=== PATIENT | male | born 1970 | race African-American/Black ===

== ENCOUNTER 2016-08-03 00:56 | Inpatient (IN) | payer SELFPAY ==
[~2016-08-03] VITALS: Ht 182.9 cm; Wt 73.9 kg
[2016-08-03] VITALS (9 sets, daily range): BP systolic 135–155; BP diastolic 70–92; PULSE 54–86; RESP 16–20; TEMP 97.4–98.2; O2SAT 95–98
[~2016-08-03 00:56] MED LIST: PERC5TAB12 PO
[2016-08-03] MEDS ORDERED: SODIUM CHLOR 0.9% 1000 ML INJ 1,000 ML IV SCH ×2 (01:39→05:44)
[2016-08-03] MEDS ORDERED: ONDANSETRON HCL 4 MG/2 ML VIAL IVP ONE (01:45)
[2016-08-03] MEDS ORDERED: MORPHINE SULFATE 4 MG/ML INJ IV PUSH ONE (01:45)
[2016-08-03] MEDS ORDERED: PANTOPRAZOLE SODIUM 40 MG VIAL IVP ONE (01:45)
--- NOTE | 2016-08-03 01:45 | PD ---
HPI Chief Complaint: GI Complaint Time Seen by Provider: 01:25 Travel History International Travel<30 days: No Contact w/Intl Traveler<30days: No Traveled to known affect area: No History of Present Illness HPI 45-year-old male complains of abdominal pain with nausea vomiting diarrhea. Patient states that the pain started this evening. Patient states the pain is sharp burning pain localized upper abdomen with radiation to the back. Patient denies any fever chills. Patient states that he noticed some blood in the vomitus. Patient denies any blood per stool. Patient denies any dysuria or frequency. Patient denies any history of GI problem in the past. Patient states that he drinks 6 pack per day. Patient states that he takes BC powder daily for shoulder pain. On a scale of 1-10 the pain is an 8. Patient also complains of abdominal bloating today. PFSH Past Medical History Diabetes: Yes (was told he was pre diabetic) Patient Takes Glucophage: No Diminished Hearing: No Influenza Vaccination: Yes Past Surgical History Other Surgery: Yes (l ankle) Social History Alcohol Use: Yes (6 PK A DAY) Tobacco Use: Yes (1 PPD) Substance Use: No Allergies-Medications (Allergen,Severity, Reaction): Coded Allergies: No Known Allergies (Verified , 08/03/16) Reported Meds & Prescriptions Reported Meds & Active Scripts Active No Active Prescriptions or Reported Medications Review of Systems General / Constitutional: No: Fever Eyes: No: Visual changes HENT: No: Headaches Cardiovascular: No: Chest Pain or Discomfort Respiratory: No: Shortness of Breath Gastrointestinal: Positive: Nausea, Vomiting, Diarrhea, Abdominal Pain Genitourinary: No: Dysuria Musculoskeletal: No: Pain Skin: No Rash Neurologic: No: Weakness Psychiatric: No: Depression Endocrine: No: Polydipsia Hematologic/Lymphatic: No: Easy Bruising Physical Exam Narrative GENERAL: Well-nourished, well-developed patient. SKIN: Warm and dry. HEAD: Normocephalic. EYES: No scleral icterus. No injection or drainage. NECK: Supple, trachea midline. No JVD or lymphadenopathy. CARDIOVASCULAR: Regular rate and rhythm without murmurs, gallops, or rubs. RESPIRATORY: Breath sounds equal bilaterally. No accessory muscle use. GASTROINTESTINAL: Abdomen soft, nondistended. Patient has moderate tenderness on palpation epigastric area and mild tenderness on palpation upper abdomen area. No rebound tenderness. No mass. MUSCULOSKELETAL: No cyanosis, or edema. BACK: Nontender without obvious deformity. No CVA tenderness. Neurologic exam normal. Data Data Last Documented VS Vital Signs Date Time Temp Pulse Resp B/P Pulse Ox O2 Delivery O2 Flow Rate FiO2 08/03/16 01:25 73 20 155/79 98 Room Air 08/03/16 00:57 98.2 Orders Complete Blood Count With Diff (08/03/16 01:39) Comprehensive Metabolic Panel (08/03/16 01:39) Lipase (08/03/16 01:39) Prothrombin Time / Inr (Pt) (08/03/16 01:39) Act Partial Throm Time (Ptt) (08/03/16 01:39) Urinalysis - C+S If Indicated (08/03/16 01:39) Ct Abd/Pel W Iv Contrast(Rout) (08/03/16 01:39) Iv Access Insert/Monitor (08/03/16 01:39) Ecg Monitoring (08/03/16 01:39) Oximetry (08/03/16 01:39) Morphine Inj (Morphine Inj) (08/03/16 01:45) Ondansetron Inj (Zofran Inj) (08/03/16 01:45) Pantoprazole Inj (Protonix Inj) (08/03/16 01:45) Sodium Chlor 0.9% 1000 Ml Inj (Ns 1000 M (08/03/16 01:39) Iohexol 350 Inj (Omnipaque 350 Inj) (08/03/16 03:01) Labs Laboratory Tests Test 08/03/16 01:40 White Blood Count 13.7 TH/MM3 Red Blood Count 4.34 MIL/MM3 Hemoglobin 14.2 GM/DL Hematocrit 39.9 % Mean Corpuscular Volume 92.0 FL Mean Corpuscular Hemoglobin 32.6 PG Mean Corpuscular Hemoglobin 35.5 % Concent Red Cell Distribution Width 17.6 % Platelet Count 327 TH/MM3 Mean Platelet Volume 7.1 FL Neutrophils (%) (Auto) 68.7 % Lymphocytes (%) (Auto) 24.5 % Monocytes (%) (Auto) 4.6 % Eosinophils (%) (Auto) 1.5 % Basophils (%) (Auto) 0.7 % Neutrophils # (Auto) 9.4 TH/MM3 Lymphocytes # (Auto) 3.4 TH/MM3 Monocytes # (Auto) 0.6 TH/MM3 Eosinophils # (Auto) 0.2 TH/MM3 Basophils # (Auto) 0.1 TH/MM3 CBC Comment DIFF FINAL Differential Comment Prothrombin Time 9.6 SEC Prothromb Time International 0.9 RATIO Ratio Activated Partial 25.0 SEC Thromboplast Time Sodium Level 141 MEQ/L Potassium Level 3.9 MEQ/L Chloride Level 108 MEQ/L Carbon Dioxide Level 24.5 MEQ/L Anion Gap 9 MEQ/L Blood Urea Nitrogen 9 MG/DL Creatinine 0.90 MG/DL Random Glucose 99 MG/DL Calcium Level 8.6 MG/DL Total Bilirubin 0.1 MG/DL Aspartate Amino Transf 33 U/L (AST/SGOT) Alanine Aminotransferase 24 U/L (ALT/SGPT) Alkaline Phosphatase 65 U/L Total Protein 7.6 GM/DL Albumin 3.7 GM/DL Lipase 08289 U/L [facility] Medical Decision Making Medical Screen Exam Complete: Yes Emergency Medical Condition: Yes Interpretation(s) Last Impressions Abdomen/Pelvis CT 08/03/16 0139 Signed Impressions: Service Date/Time: Wednesday, August 03, 2016 02:48 - CONCLUSION: 1. Acute pancreatitis. No gallstones. No pseudocyst. The splenic vein remains patent. Christiano Brown Jr., MD 5:04 AM. CBC WBC 13.7. Normal differential. CMP with lipase 80177. Differential Diagnosis Differential diagnosis including gastroenteritis, gastritis, PUD, appendicitis, cholecystitis, colitis, UTI, pyelonephritis, nephrolithiasis. Narrative Course 45-year-old male with epigastric upper abdominal pain and nausea vomiting diarrhea. Patient states that he drinking sixpack daily. Normal saline solution 1 25 cc an hour. Protonix 40 mg IV. Morphine 2 mg IV. Zofran 4 mg IV. Diagnosis Primary Impression: Acute pancreatitis Qualified Code: K85.20 - Alcohol-induced acute pancreatitis without infection or necrosis Scripts No Active Prescriptions or Reported Meds Wing Dinero MD Aug 03, 2016 01:44
[2016-08-03 02:01] LABS: AUTOMATED NEUTROPHIL # 9.4 TH/MM3 (1.8-7.7); BASOPHIL # 0.1 TH/MM3 (0-0.2); BASOPHIL % 0.7 % (0.0-2.0); EOSINOPHIL # 0.2 TH/MM3 (0-0.4); EOSINOPHIL % 1.5 % (0.0-4.0); HEMATOCRIT 39.9 % (39.0-51.0); HEMO FLAGS DIFF FINAL; LYMPH % 24.5 % (9.0-44.0); LYMPHOCYTE # 3.4 TH/MM3 (1.0-4.8); MEAN CORPUSCULAR HEMOGLOBIN 32.6 PG (27.0-34.0); MEAN CORPUSCULAR HGB CONC 35.5 % (32.0-36.0); MONO % 4.6 % (0.0-8.0); NEUT % 68.7 % (16.0-70.0); PLATELET COUNT 327 TH/MM3 (150-450); RED BLOOD COUNT 4.34 MIL/MM3 (4.50-5.90); RED CELL DISTRIBUTION WIDTH 17.6 % (11.6-17.2); WHITE BLOOD COUNT 13.7 TH/MM3 (4.0-11.0)
[2016-08-03 02:12] LABS: INTERNATIONAL NORMALIZED RATIO 0.9 RATIO; PROTHROMBIN TIME - PATIENT 9.6 SEC (9.8-11.6)
[2016-08-03 02:23] LABS: ALT (GPT) 24 U/L (12-78); ANION GAP 9 MEQ/L (5-15); AST (GOT) 33 U/L (15-37); BICARBONATE 24.5 MEQ/L (21.0-32.0); BLOOD UREA NITROGEN 9 MG/DL (7-18); CHLORIDE 108 MEQ/L (98-107); POTASSIUM 3.9 MEQ/L (3.5-5.1); SODIUM (NA) 141 MEQ/L (136-145)
[2016-08-03 02:25] LABS: ALKALINE PHOSPHATASE 65 U/L (45-117); TOTAL BILIRUBIN ADULT 0.1 MG/DL (0.2-1.0)
[2016-08-03] MEDS ORDERED: IOHEXOL 350 MG/ML 10 ML VIAL (for RAD DIAG) IV ONE (03:01)
--- NOTE | 2016-08-03 04:38 | RADRPT ---
EXAM DATE/TIME: 08/03/2016 02:48 [facility] COMPARISON: No previous studies available for comparison. INDICATIONS : Abdominal pain along with nausea,vomiting and diarrhea. IV CONTRAST: 75 cc Omnipaque 350 (iohexol) IV ORAL CONTRAST: No oral contrast ingested. RADIATION DOSE: 9.96 CTDIvol (mGy) MEDICAL HISTORY : None SURGICAL HISTORY : None. ENCOUNTER: Initial ACUITY: 1 day PAIN SCALE: 10/10 LOCATION: abdomen TECHNIQUE: Volumetric scanning of the abdomen and pelvis was performed. Using automated exposure control and ad justment of the mA and/or kV according to patient size, radiation dose was kept as low as reasonably achievable to obtain optimal diagnostic quality images. FINDINGS: LOWER LUNGS: The visualized lower lungs are clear. LIVER: Homogeneous density without lesion. There is no dilation of the biliary tree. No calcified gallston es. SPLEEN: Normal size without lesion. PANCREAS: There is stranding in the fat surrounding the pancreas most abundant within the body and tail. The pa ncreas enhances normally with contrast. Splenic vein remains patent. No pancreatic ductal dilatation. No gallstones. KIDNEYS: Normal in size and shape. There is no mass, stone or hydronephrosis. ADRENAL GLANDS: Within normal limits. VASCULAR: There is no aortic aneurysm. BOWEL/MESENTERY: The stomach, small bowel, and colon demonstrate no acute abnormality. There is no free intraperitone al air or fluid. ABDOMINAL WALL: Within normal limits. RETROPERITONEUM: There is no lymphadenopathy. BLADDER: No wall thickening or mass. REPRODUCTIVE: Within normal limits. INGUINAL: There is no lymphadenopathy or hernia. MUSCULOSKELETAL: Within normal limits for patient age. CONCLUSION: 1. Acute pancreatitis. No gallstones. No pseudocyst. The splenic vein remains patent. Christiano Brown Jr., MD on August 03, 2016 at 4:32 Board Certified Radiologist. This report was verified electronically.
[2016-08-03] MEDS ORDERED: ONDANSETRON HCL 4 MG/2 ML VIAL IVP PRN (05:45)
[2016-08-03] MEDS ORDERED: NALOXONE HCL 0.4 MG/ML AMP IV PRN (05:45)
[2016-08-03] MEDS ORDERED: SODIUM CHLORIDE 0.9% FLUSH 10 ML FLUSH IV FLUSH PRN (05:45)
[2016-08-03] MEDS ORDERED: LORazepam 2 MG/ML VIAL IV PUSH PRN (06:00)
[2016-08-03] MEDS ORDERED: THIAMINE HCL 100 MG TAB PO ONE (06:00)
[2016-08-03 06:02] LABS: BLOOD, URINE NEG (NEG); COMMENT (UR) CULT NOT INDICATED; CULTURE IF INDICATED CULT NOT INDICATED; GLUCOSE,URINE NEG (NEG); HYALINE CAST, URINE 1 /lpf (RARE); KETONE, URINE NEG (NEG); MUCUS URINE FEW /lpf (OCC); NITRITE,URINE NEG (NEG); PH, URINE 5.5 (5.0-8.5); URINE COLOR YELLOW (YELLW/STRAW)
[2016-08-03] MEDS: MORPHINE SULFATE 4 MG/ML INJ IV PUSH PRN ×3 (06:11→21:15)
[2016-08-03] MEDS: SODIUM CHLORIDE 0.9% FLUSH 10 ML FLUSH IV FLUSH SCH ×2 (08:58→21:00)
[2016-08-03] MEDS: chlordiazePOXIDE 25 MG CAP PO SCH ×3 (09:07→17:17)
--- NOTE | 2016-08-03 20:09 | HHI.HP ---
HPI Service [facility] Hospitalists Primary Care Physician No Primary Care Physician Admission Diagnosis acute pancreatitis Diagnoses: Chief Complaint: Abdominal pain Travel History International Travel<30 Days: No Contact w/Intl Traveler <30 Da: No Traveled to Known Affected Are: No History of Present Illness This is a 45-year-old male without significant past medical history other than alcohol abuse and smoking addiction who presents to [facility] complaining of one-day history of severe abdominal pain. The patient states that he started having yesterday around 7:20 PM abdominal pain localized in the epigastric region radiating to both right upper quadrant and left upper quadrant and to the back in a hemipelvis fashion associated with nausea and vomiting posteriorly as well as diarrhea. The patient denies any fevers or chills, denies any tremors, denies headache, denies palpitations. Complains of abdominal distention and decreased appetite. Patient states there are no aggravating or alleviating factors other than medications being administered here in the hospital. Nausea still present, however vomiting has resolved. Review of Systems As per history of present illness, other systems reviewed by me and negative Past Family Social History Past Medical History Denies Past Surgical History Right ankle surgery for fracture repair Reported Medications No Active Prescriptions or Reported Medications Allergies: Coded Allergies: No Known Allergies (Verified , 08/03/16) Active Ordered Medications Current Medications Medications (Trade) Dose Ordered Sig/Ling Route Start Time Stop Time Status Last Admin (NS Flush) 2 ml UNSCH PRN IV FLUSH 08/03/16 05:45 08/03/16 16:30 (NS Flush) 2 ml BID IV FLUSH 08/03/16 09:00 (Zofran Inj) 4 mg Q6H PRN IVP 08/03/16 05:45 (Narcan Inj) 0.4 mg UNSCH PRN IV 08/03/16 05:45 (Morphine Inj) 2 mg Q3H PRN IV PUSH 08/03/16 06:00 08/03/16 17:18 (Vitamin B1) 100 mg DAILY PO 08/04/16 09:00 (Ativan Inj) 1 mg Q2H PRN IV PUSH 08/03/16 06:00 (Librium) 25 mg TID PO 08/03/16 09:00 08/03/16 17:17 (Protonix Inj) 40 mg Q24H IV PUSH 08/04/16 06:00 Family History Denies family history of diabetes, cancer or heart disease. Social History Patient states he smokes 1 pack per day. Patient drinks alcohol about an 8 pack per day. Denies illegal drug use. The patient is single and has 5 grownup children. Physical Exam Vital Signs Vital Signs Date Time Temp Pulse Resp B/P Pulse Ox O2 Delivery O2 Flow Rate FiO2 08/03/16 16:00 97.7 54 17 155/92 97 08/03/16 15:52 54 18 155/70 97 08/03/16 07:27 58 18 135/72 95 Room Air 08/03/16 07:26 18 95 Room Air 08/03/16 03:30 82 20 145/75 98 Room Air 08/03/16 01:25 73 20 155/79 98 Room Air 08/03/16 01:25 20 08/03/16 00:57 98.2 86 16 142/89 98 Room Air Physical Exam GENERAL: This is a well-nourished, well-developed patient, in moderate distress due to pain. No respiratory distress SKIN: No rashes, ecchymoses or lesions. Cool and dry. HEAD: Atraumatic. Normocephalic. No temporal or scalp tenderness. EYES: Pupils equal round and reactive. Extraocular motions intact. No scleral icterus. No injection or drainage. ENT: Nose without bleeding, purulent drainage or septal hematoma. Throat without erythema, tonsillar hypertrophy or exudate. Uvula midline. Airway patent. NECK: Trachea midline. No JVD or lymphadenopathy. Supple, nontender, no meningeal signs. CARDIOVASCULAR: Regular rate and rhythm without murmurs, gallops, or rubs. RESPIRATORY: Clear to auscultation. Breath sounds equal bilaterally. No wheezes , rales, or rhonchi. GASTROINTESTINAL: Abdomen soft, slightly tender to palpation mostly in epigastric region and upper quadrants. Bowel sounds are present. MUSCULOSKELETAL: Extremities without clubbing, cyanosis, or edema. No joint tenderness, effusion, or edema noted. No calf tenderness. Negative Homans sign bilaterally. NEUROLOGICAL: Awake and alert. Cranial nerves II through XII intact. Motor and sensory grossly within normal limits. Five out of 5 muscle strength in all muscle groups. Normal speech. Laboratory Laboratory Tests Test 08/03/16 08/03/16 01:40 05:30 White Blood Count 13.7 Red Blood Count 4.34 Hemoglobin 14.2 Hematocrit 39.9 Mean Corpuscular Volume 92.0 Mean Corpuscular Hemoglobin 32.6 Mean Corpuscular Hemoglobin 35.5 Concent Red Cell Distribution Width 17.6 Platelet Count 327 Mean Platelet Volume 7.1 Neutrophils (%) (Auto) 68.7 Lymphocytes (%) (Auto) 24.5 Monocytes (%) (Auto) 4.6 Eosinophils (%) (Auto) 1.5 Basophils (%) (Auto) 0.7 Neutrophils # (Auto) 9.4 Lymphocytes # (Auto) 3.4 Monocytes # (Auto) 0.6 Eosinophils # (Auto) 0.2 Basophils # (Auto) 0.1 CBC Comment DIFF FINAL Differential Comment Prothrombin Time 9.6 Prothromb Time International 0.9 Ratio Activated Partial 25.0 Thromboplast Time Sodium Level 141 Potassium Level 3.9 Chloride Level 108 Carbon Dioxide Level 24.5 Anion Gap 9 Blood Urea Nitrogen 9 Creatinine 0.90 Random Glucose 99 Calcium Level 8.6 Total Bilirubin 0.1 Aspartate Amino Transf 33 (AST/SGOT) Alanine Aminotransferase 24 (ALT/SGPT) Alkaline Phosphatase 65 Total Protein 7.6 Albumin 3.7 Lipase 25092 Urine Color YELLOW Urine Turbidity CLEAR Urine pH 5.5 Urine Specific [place] GREATER THAN 1.050 Urine Protein TRACE Urine Glucose (UA) NEG Urine Ketones NEG Urine Occult Blood NEG Urine Nitrite NEG Urine Bilirubin NEG Urine Urobilinogen LESS THAN 2.0 Urine Leukocyte Esterase NEG Urine RBC LESS THAN 1 Urine WBC LESS THAN 1 Urine Hyaline Casts 1 Urine Mucus FEW Microscopic Urinalysis Comment CULT NOT INDICATED Result Diagram: 08/03/16 0140 08/03/16139 Imaging Last Impressions Abdomen/Pelvis CT 08/03/16138 Signed Impressions: Service Date/Time: Wednesday, August 03, 2016 02:48 - CONCLUSION: 1. Acute pancreatitis. No gallstones. No pseudocyst. The splenic vein remains patent. Christiano Brown Jr., MD Reviewed by me Assessment and Plan Problem List: (1) Acute pancreatitis ICD Code: K85.90 Status: Acute (2) Leukocytosis ICD Code: D72.829 Status: Acute Assessment and Plan Admit the patient to medical floor. IV Zofran as needed for nausea and vomiting. We'll place on IV fluids in the form of normal saline at 150 mL per hour. Pain control with IV morphine Keep nothing by mouth for now GI consult Monitor lipase. Code Status Full code Discussed Condition With Patient Physician Certification 2 Midnight Certification Type: Admission for Inpatient Services Order for Inpatient Services The services are ordered in accordance with Medicare regulations or non- Medicare payer requirements, as applicable. In the case of services not specified as inpatient-only, they are appropriately provided as inpatient services in accordance with the 2-midnight benchmark. Estimated LOS (days): 2 days is the estimated time the patient will need to remain in the hospital, assuming treatment plan goals are met and no additional complications. Post-Hospital Plan: Home Problem Qualifiers (1) Acute pancreatitis: Qualified Code: K85.20 - Alcohol-induced acute pancreatitis without infection or necrosis Jonathan Carmen MD Aug 03, 2016 20:09
[2016-08-03] MEDS ORDERED: MORPHINE SULFATE 4 MG/ML INJ IV PUSH PRN (20:45)
[2016-08-03] MEDS ORDERED: cloNIDine HCL 0.1 MG TAB PO PRN (21:00)
[2016-08-03] MEDS: SODIUM CHLOR 0.9% 1000 ML INJ 1,000 ML IV SCH (21:09)
[2016-08-04] VITALS: BP 144/81; PULSE 59; RESP 17; TEMP 98.6; O2SAT 96
[2016-08-04 04:00] VITALS: BP 142/89; PULSE 59; RESP 18; TEMP 98.9; O2SAT 97
[2016-08-04 04:37] LABS: AUTOMATED NEUTROPHIL # 7.1 TH/MM3 (1.8-7.7); BASOPHIL % 0.3 % (0.0-2.0); EOSINOPHIL # 0.2 TH/MM3 (0-0.4); EOSINOPHIL % 1.9 % (0.0-4.0); HEMO FLAGS DIFF FINAL; LYMPH % 16.9 % (9.0-44.0); LYMPHOCYTE # 1.6 TH/MM3 (1.0-4.8); MEAN CORPUSCULAR HEMOGLOBIN 30.8 PG (27.0-34.0); MEAN CORPUSCULAR HGB CONC 32.8 % (32.0-36.0); NEUT % 72.9 % (16.0-70.0); PLATELET COUNT 269 TH/MM3 (150-450); RED BLOOD COUNT 4.25 MIL/MM3 (4.50-5.90); RED CELL DISTRIBUTION WIDTH 17.5 % (11.6-17.2); WHITE BLOOD COUNT 9.7 TH/MM3 (4.0-11.0)
[2016-08-04] MEDS: SODIUM CHLOR 0.9% 1000 ML INJ 1,000 ML IV SCH ×3 (04:57→21:00)
[2016-08-04] MEDS: PANTOPRAZOLE SODIUM 40 MG VIAL IV PUSH SCH (05:00)
[2016-08-04 05:12] LABS: ALKALINE PHOSPHATASE 62 U/L (45-117); ALT (GPT) 18 U/L (12-78); ANION GAP 7 MEQ/L (5-15); AST (GOT) 19 U/L (15-37); BICARBONATE 26.5 MEQ/L (21.0-32.0); BLOOD UREA NITROGEN 8 MG/DL (7-18); CHLORIDE 106 MEQ/L (98-107); GLOMERULAR FILTRATION RATE 120 ML/MIN (>89); POTASSIUM 3.9 MEQ/L (3.5-5.1); SODIUM (NA) 139 MEQ/L (136-145); TOTAL BILIRUBIN ADULT 0.5 MG/DL (0.2-1.0)
[2016-08-04 08:00] VITALS: BP 131/78; PULSE 54; RESP 16; TEMP 97.6; O2SAT 96
[2016-08-04] MEDS: MORPHINE SULFATE 4 MG/ML INJ IV PUSH PRN (09:02)
[2016-08-04] MEDS: THIAMINE HCL 100 MG TAB PO SCH (09:02)
[2016-08-04] MEDS: chlordiazePOXIDE 25 MG CAP PO SCH ×3 (09:02→17:47)
--- NOTE | 2016-08-04 09:27 | HHI.PR ---
Subjective Remarks Patient still c/o abdominal pain - diffuse feels nauseous when he stands up states that he is urinating well denies cp/sob BP elevated overnight now w better control Objective Vitals Vital Signs Date Time Temp Pulse Resp B/P Pulse Ox O2 Delivery O2 Flow Rate FiO2 08/04/16 08:00 97.6 54 16 131/78 96 08/04/16 04:00 98.9 59 18 142/89 97 08/04/16 00:00 98.6 59 17 144/81 96 08/03/16 21:02 56 08/03/16 20:30 97.4 58 17 152/82 96 08/03/16 16:00 97.7 54 17 155/92 97 08/03/16 15:52 54 18 155/70 97 I/O 08/03/16 08/03/16 08/03/16 08/04/16 08/04/16 08/04/16 07:00 15:00 23:00 07:00 15:00 23:00 Intake Total 360 ml Output Total 400 ml Balance -40 ml Intake Oral 360 ml Output Urine Total 400 ml # Voids 5 # Bowel Movements 2 Result Diagram: 08/04/16 0400 08/04/16 0400 Imaging Last Impressions Abdomen/Pelvis CT 08/03/16 0139 Signed Impressions: Service Date/Time: Wednesday, August 03, 2016 02:48 - CONCLUSION: 1. Acute pancreatitis. No gallstones. No pseudocyst. The splenic vein remains patent. Christiano Brown Jr., MD Objective Remarks GENERAL: This is a well-nourished, well-developed patient, in mild distress due to pain. No respiratory distress SKIN: No rashes, ecchymoses or lesions. Cool and dry. HEAD: Atraumatic. Normocephalic. No temporal or scalp tenderness. EYES: Pupils equal round and reactive. Extraocular motions intact. No scleral icterus. No injection or drainage. ENT: Nose without bleeding, purulent drainage or septal hematoma. Throat without erythema, tonsillar hypertrophy or exudate. Uvula midline. Airway patent. NECK: Trachea midline. No JVD or lymphadenopathy. Supple, nontender, no meningeal signs. CARDIOVASCULAR: Regular rate and rhythm without murmurs, gallops, or rubs. RESPIRATORY: Clear to auscultation. Breath sounds equal bilaterally. No wheezes , rales, or rhonchi. GASTROINTESTINAL: Abdomen soft, slightly tender to palpation mostly in epigastric region and upper quadrants. Bowel sounds are present. moderately distended. MUSCULOSKELETAL: Extremities without clubbing, cyanosis, or edema. No joint tenderness, effusion, or edema noted. No calf tenderness. Negative Homans sign bilaterally. NEUROLOGICAL: Awake and alert. Cranial nerves II through XII intact. Motor and sensory grossly within normal limits. Five out of 5 muscle strength in all muscle groups. Normal Medications and IVs Current Medications Medications (Trade) Dose Ordered Sig/Ling Route Start Time Stop Time Status Last Admin (NS Flush) 2 ml UNSCH PRN IV FLUSH 08/03/16 05:45 08/03/16 16:30 (NS Flush) 2 ml BID IV FLUSH 08/03/16 09:00 08/04/16 10:09 (Zofran Inj) 4 mg Q6H PRN IVP 08/03/16 05:45 (Narcan Inj) 0.4 mg UNSCH PRN IV 08/03/16 05:45 (Vitamin B1) 100 mg DAILY PO 08/04/16 09:00 08/04/16 09:02 (Ativan Inj) 1 mg Q2H PRN IV PUSH 08/03/16 06:00 (Librium) 25 mg TID PO 08/03/16 09:00 08/04/16 09:02 Pantoprazole Sodium 40 mg 40 mg Q24H IV PUSH 08/04/16 06:00 08/04/16 05:00 (NS 1000 ml Inj) 1,000 ml @ 125 mls/hr Q8H IV 08/03/16 21:00 08/04/16 04:57 (Morphine Inj) 2 mg Q3H PRN IV PUSH 08/03/16 20:45 (Morphine Inj) 4 mg Q3H PRN IV PUSH 08/03/16 20:45 08/04/16 09:02 (Catapres) 0.1 mg Q6H PRN PO 08/03/16 21:00 Urinary Catheter: No Vascular Central Line Catheter: No A/P Problem List: (1) Acute alcoholic pancreatitis ICD Code: K85.20 Status: Acute Plan: Patient has been admitted to the medical floor. Continue to monitor. GI consulted, recommendations pending Continue to keep the patient nothing by mouth Continue IV fluids in the form of normal saline. Continue pain control with IV morphine. (2) Elevated lipase ICD Code: R74.8 Status: Acute Plan: Secondary to acute pancreatitis. Lipase on admission 00896, trending down to 1348. (3) Abdominal pain ICD Code: R10.9 Status: Acute Plan: Due to acute pancreatitis. Continue pain control with IV morphine. (4) Leukocytosis ICD Code: D72.829 Status: Acute Plan: Additional distress and pain. WBC now down to 9.7. Continue to monitor CBC. Assessment and Plan GI prophylaxis: PPI. DVT prophylaxis: SCDs, I will add subcutaneous Lovenox. Discharge Planning Patient still with abdominal pain. Continue to monitor and the medical floor. Problem Qualifiers (1) Acute alcoholic pancreatitis: Qualified Code: K85.20 - Alcohol-induced acute pancreatitis without infection or necrosis (2) Abdominal pain: Qualified Code: R10.9 - Abdominal pain, unspecified location (3) Leukocytosis: Qualified Code: D72.829 - Leukocytosis, unspecified type Jonathan Carmen MD Aug 04, 2016 09:27
[2016-08-04] MEDS: SODIUM CHLORIDE 0.9% FLUSH 10 ML FLUSH IV FLUSH SCH ×2 (10:09→21:00)
--- NOTE | 2016-08-04 11:11 | PD.CONS ---
HPI History of Present Illness This is a pleasant 45 year old AA male with out past medical history except for alcohol abuse and smoking who presents to [facility] for evaluation of acute severe throbbing abdomen pain that started evening and woke him up from sleep. Patient admits to drinking about 8 pack a day for many years, states, he might have had more than usual prior to the abdomen pain. He is not on any medications at home except goody powder which he takes for shoulder and ankle pain. The pain in epigastric area and radiates to both right upper quadrant and left upper quadrant and wraps to the back, associated with nausea and vomiting, and diarrhea.He reports abdominal distention and decreased appetite. Nausea, vomiting, and diarrhea still persists here in the hospital. He had vomited this morning. last bout of diarrhea was around 5 am The patient denies any fevers or chills, denies or tremors, denies headache, denies palpitations. This is first episode of pancreatitis. CT showed Acute pancreatitis. No gallstones. No pseudocyst. The splenic vein [place] [address], LFTs normal. [facility] Past Medical History Denies Past Surgical History Right ankle surgery for fracture repair Coded Allergies: No Known Allergies (Verified , 08/03/16) Medications Current Medications Medications (Trade) Dose Ordered Sig/Ling Route Start Time Stop Time Status Last Admin (NS Flush) 2 ml UNSCH PRN IV FLUSH 08/03/16 05:45 08/03/16 16:30 (NS Flush) 2 ml BID IV FLUSH 08/03/16 09:00 08/04/16 10:09 (Zofran Inj) 4 mg Q6H PRN IVP 08/03/16 05:45 (Narcan Inj) 0.4 mg UNSCH PRN IV 08/03/16 05:45 (Vitamin B1) 100 mg DAILY PO 08/04/16 09:00 08/04/16 09:02 (Ativan Inj) 1 mg Q2H PRN IV PUSH 08/03/16 06:00 (Librium) 25 mg TID PO 08/03/16 09:00 08/04/16 09:02 Pantoprazole Sodium 40 mg 40 mg Q24H IV PUSH 08/04/16 06:00 08/04/16 05:00 (NS 1000 ml Inj) 1,000 ml @ 125 mls/hr Q8H IV 08/03/16 21:00 08/04/16 04:57 (Morphine Inj) 2 mg Q3H PRN IV PUSH 08/03/16 20:45 (Morphine Inj) 4 mg Q3H PRN IV PUSH 08/03/16 20:45 08/04/16 09:02 (Catapres) 0.1 mg Q6H PRN PO 08/03/16 21:00 Family History Denies family history of pancreatitis or colon cancer Social History Patient states he smokes 1 pack per day. Patient drinks alcohol about an 8 pack per day. Denies illegal drug use. GI Exam Vitals I&O Vital Signs Date Time Temp Pulse Resp B/P Pulse Ox O2 Delivery O2 Flow Rate FiO2 08/04/16 08:00 97.6 54 16 131/78 96 08/04/16 04:00 98.9 59 18 142/89 97 08/04/16 00:00 98.6 59 17 144/81 96 08/03/16 21:02 56 08/03/16 20:30 97.4 58 17 152/82 96 08/03/16 16:00 97.7 54 17 155/92 97 08/03/16 15:52 54 18 155/70 97 I/O 08/03/16 08/03/16 08/03/16 08/04/16 08/04/16 08/04/16 07:00 15:00 23:00 07:00 15:00 23:00 Intake Total 360 ml Output Total 400 ml Balance -40 ml Intake Oral 360 ml Output Urine Total 400 ml # Voids 5 # Bowel Movements 2 Imaging Last Impressions Abdomen/Pelvis CT 08/03/16 0139 Signed Impressions: Service Date/Time: Wednesday, August 03, 2016 02:48 - CONCLUSION: 1. Acute pancreatitis. No gallstones. No pseudocyst. The splenic vein remains patent. Christiano Brown Jr., MD Laboratory Test 08/04/16 04:00 White Blood Count 9.7 TH/MM3 Red Blood Count 4.25 MIL/MM3 Hemoglobin 13.1 GM/DL Hematocrit 40.0 % Mean Corpuscular Volume 94.0 FL Mean Corpuscular Hemoglobin 30.8 PG Mean Corpuscular Hemoglobin 32.8 % Concent Red Cell Distribution Width 17.5 % Platelet Count 269 TH/MM3 Mean Platelet Volume 6.8 FL Neutrophils (%) (Auto) 72.9 % Lymphocytes (%) (Auto) 16.9 % Monocytes (%) (Auto) 8.0 % Eosinophils (%) (Auto) 1.9 % Basophils (%) (Auto) 0.3 % Neutrophils # (Auto) 7.1 TH/MM3 Lymphocytes # (Auto) 1.6 TH/MM3 Monocytes # (Auto) 0.8 TH/MM3 Eosinophils # (Auto) 0.2 TH/MM3 Basophils # (Auto) 0.0 TH/MM3 CBC Comment DIFF FINAL Differential Comment Sodium Level 139 MEQ/L Potassium Level 3.9 MEQ/L Chloride Level 106 MEQ/L Carbon Dioxide Level 26.5 MEQ/L Anion Gap 7 MEQ/L Blood Urea Nitrogen 8 MG/DL Creatinine 0.84 MG/DL Estimat Glomerular Filtration 120 ML/MIN Rate Random Glucose 71 MG/DL Calcium Level 8.6 MG/DL Total Bilirubin 0.5 MG/DL Aspartate Amino Transf 19 U/L (AST/SGOT) Alanine Aminotransferase 18 U/L (ALT/SGPT) Alkaline Phosphatase 62 U/L Total Protein 6.6 GM/DL Albumin 3.0 GM/DL Lipase 1348 U/L Physical Examination HEENT: normocephalic; atraumatic; no jaundice. NECK: Neck is supple, no JVD, no lymphadenopathy. CHEST: Chest is clear to auscultation and percussion. CARDIAC: Regular rate and rhythm with no murmur gallop or rubs. ABDOMEN: Soft, distended, severe tenderness upon palpation; no hepatosplenomegaly; bowel sounds are present in all four quadrants. EXTREMITIES: No clubbing, cyanosis, or edema. SKIN: Normal; no rash; no jaundice. HAT PRESSER: No focal deficits; alert and oriented times three. Assessment and Plan Plan - Acute pancreatitis first episode/ likely alcohol induced (Patient admits to drinking about 8 pack a day for many years)- severe throbbing abdomen pain that started evening and woke him up from sleep. states, he might have had more than usual prior to the abdomen pain. He is not on any medications at home except goody powder which he takes for shoulder and ankle pain. The pain in epigastric area and radiates to both right upper quadrant and left upper quadrant and wraps to the back, associated with nausea and vomiting, and diarrhea.He reports abdominal distention and decreased appetite. Nausea, vomiting, and diarrhea still persists here in the hospital. He had vomited this morning. last bout of diarrhea was around 5 am The patient denies any fevers or chills, denies or tremors, denies headache, denies palpitation CT showed Acute pancreatitis. No gallstones. No pseudocyst. The splenic vein [place] [address] ---> 1348, LFTs normal. - Leukocytosis- secondary to above, resolved - Alcohol abuse- Counseled on cessation - Smoking abuse Plan: - Clear liquids - Lipase, lfts in am - Possible EGD on Saturday - Alcohol cessation - supportive care - Patient seen and examined by Dr. Be and myself and this note is written on her behalf. Crescencio Miranda Aug 04, 2016 11:10
[2016-08-04 12:00] VITALS: BP 133/84; PULSE 56; RESP 16; TEMP 97.9; O2SAT 96
[2016-08-04 16:00] VITALS: BP 132/82; PULSE 68; RESP 15; TEMP 98; O2SAT 98
[2016-08-04 20:00] VITALS: BP 140/78; PULSE 60; PULSE 90; RESP 17; TEMP 98.4; O2SAT 99
[2016-08-05] VITALS (7 sets, daily range): BP systolic 122–148; BP diastolic 75–92; PULSE 50–77; RESP 17–18; TEMP 96.2–98.5; O2SAT 95–98
[2016-08-05] MEDS: MORPHINE SULFATE 4 MG/ML INJ IV PUSH PRN (04:15)
[2016-08-05] MEDS: SODIUM CHLOR 0.9% 1000 ML INJ 1,000 ML IV SCH ×2 (04:15→12:29)
[2016-08-05 04:38] LABS: HEMATOCRIT 37.8 % (39.0-51.0); MEAN CELL VOLUME 92.3 FL (80.0-100.0); MEAN CORPUSCULAR HGB CONC 34.7 % (32.0-36.0); PLATELET COUNT 289 TH/MM3 (150-450); RED BLOOD COUNT 4.09 MIL/MM3 (4.50-5.90); RED CELL DISTRIBUTION WIDTH 17.3 % (11.6-17.2); REVIEW FLAG FINAL; WHITE BLOOD COUNT 8.6 TH/MM3 (4.0-11.0)
[2016-08-05] MEDS: PANTOPRAZOLE SODIUM 40 MG VIAL IV PUSH SCH (05:03)
[2016-08-05] MEDS: chlordiazePOXIDE 25 MG CAP PO SCH ×3 (08:22→17:07)
[2016-08-05] MEDS: SODIUM CHLORIDE 0.9% FLUSH 10 ML FLUSH IV FLUSH SCH ×2 (08:22→21:00)
[2016-08-05] MEDS: THIAMINE HCL 100 MG TAB PO SCH (08:22)
--- NOTE | 2016-08-05 12:29 | HHI.GIFU ---
Subjective Remarks Pt reports that he had an episode of vomiting this morning and one episode of diarrhea about 30 mins ago. Afebrile Continues to have abd pain ([place]) Objective Vitals I&O Vital Signs Date Time Temp Pulse Resp B/P Pulse Ox O2 Delivery O2 Flow Rate FiO2 08/05/16 08:00 97.0 50 18 138/76 97 08/05/16 06:26 51 08/05/16 06:26 51 133/82 95 08/05/16 04:00 97.6 54 17 122/75 97 08/05/16 00:00 98.5 60 17 148/89 98 08/04/16 20:00 90 08/04/16 20:00 98.4 60 17 140/78 99 08/04/16 16:00 98.0 68 15 132/82 98 I/O 08/04/16 08/04/16 08/04/16 08/05/16 08/05/16 08/05/16 07:00 15:00 23:00 07:00 15:00 23:00 Intake Total 1668 ml 1371 ml 729 ml Balance 1668 ml 1371 ml 729 ml Intake Oral 0 ml 240 ml 240 ml IV Total 1668 ml 1131 ml 489 ml # Voids 5 5 4 4 # Bowel Movements 0 4 Laboratory Laboratory Tests Test 08/05/16 04:06 White Blood Count 8.6 Red Blood Count 4.09 Hemoglobin 13.1 Hematocrit 37.8 Mean Corpuscular Volume 92.3 Mean Corpuscular Hemoglobin 32.0 Mean Corpuscular Hemoglobin 34.7 Concent Red Cell Distribution Width 17.3 Platelet Count 289 Mean Platelet Volume 7.0 Sodium Level 139 Potassium Level 4.0 Chloride Level 106 Carbon Dioxide Level 26.0 Anion Gap 7 Blood Urea Nitrogen 7 Creatinine 0.83 Estimat Glomerular Filtration 122 Rate Random Glucose 85 Calcium Level 8.6 Lipase 407 Imaging Last Impressions Abdomen/Pelvis CT 08/03/16 0139 Signed Impressions: Service Date/Time: Wednesday, August 03, 2016 02:48 - CONCLUSION: 1. Acute pancreatitis. No gallstones. No pseudocyst. The splenic vein remains patent. Christiano Brown Jr., MD Physical Exam HEENT: Pupils round and reactive to light; normocephalic; atraumatic; no jaundice. Throat is clear. CHEST: CTA CARDIAC: Regular ABDOMEN: +BS, distended, diffusely tender, increased in the upper abdomen. EXTREMITIES: No clubbing, cyanosis, or edema. SKIN: Normal; no rash; no jaundice. MECHANICAL FITTER: No focal deficits; alert and oriented times three. ([place]) Assessment and Plan Plan - Acute pancreatitis first episode/ likely alcohol induced. Patient admits to longstanding EtOH use, drinking about 8 pack/day for many years. He takes 2 goody powder per day which he takes for shoulder and ankle pain. Pt has had associated nausea/vomiting and diarrhea. CT Abd/pelvis (08/04/16) --> acute pancreatitis. No gallstones. No pseudocyst. The splenic vein remains patent. Lipase at admission 06135 ---> 1348 (08/04) --> 407 (08/05), LFTs normal. IVF. Zofran. PPI. - Leukocytosis- secondary to above, resolved - Alcohol abuse- Counseled on cessation. Librium TID. Ativan PRN. - Tobacco abuse Plan: - IVF - Clear liquids - Check triglycerides - Lipase in am - EGD in AM to r/o PUD in light of his chronic NSAID use. - PPI - Pain control PRN - Antiemetics PRN - DT precautions - Alcohol cessation - supportive care - Patient seen and examined by Dr. Be and myself and this note is written on her behalf. ([place]) Physician Comments agree with above (Shamika Be MD) [place] Aug 05, 2016 12:29 Shamika Be MD Aug 05, 2016 15:31
--- NOTE | 2016-08-05 15:11 | HHI.PR ---
Subjective Remarks Patient states that abdominal pain is much improved. Denies fevers or chills. As nausea or vomiting Tolerating clear liquid diet. Stable vital signs Lipase trending down. Objective Vitals Vital Signs Date Time Temp Pulse Resp B/P Pulse Ox O2 Delivery O2 Flow Rate FiO2 08/05/16 12:00 97.5 55 18 130/80 96 08/05/16 08:00 97.0 50 18 138/76 97 08/05/16 06:26 51 08/05/16 06:26 51 133/82 95 08/05/16 04:00 97.6 54 17 122/75 97 08/05/16 00:00 98.5 60 17 148/89 98 08/04/16 20:00 90 08/04/16 20:00 98.4 60 17 140/78 99 08/04/16 16:00 98.0 68 15 132/82 98 I/O 08/04/16 08/04/16 08/04/16 08/05/16 08/05/16 08/05/16 07:00 15:00 23:00 07:00 15:00 23:00 Intake Total 1668 ml 1371 ml 729 ml Balance 1668 ml 1371 ml 729 ml Intake Oral 0 ml 240 ml 240 ml IV Total 1668 ml 1131 ml 489 ml # Voids 5 5 4 4 # Bowel Movements 0 4 Result Diagram: 08/05/16 0406 08/05/16 0406 Imaging Last Impressions Abdomen/Pelvis CT 08/03/16 0139 Signed Impressions: Service Date/Time: Wednesday, August 03, 2016 02:48 - CONCLUSION: 1. Acute pancreatitis. No gallstones. No pseudocyst. The splenic vein remains patent. Christiano Brown Jr., MD Objective Remarks GENERAL: This is a well-nourished, well-developed patient, in mild distress due to pain. No respiratory distress SKIN: No rashes, ecchymoses or lesions. Cool and dry. HEAD: Atraumatic. Normocephalic. No temporal or scalp tenderness. EYES: Pupils equal round and reactive. Extraocular motions intact. No scleral icterus. No injection or drainage. ENT: Nose without bleeding, purulent drainage or septal hematoma. Throat without erythema, tonsillar hypertrophy or exudate. Uvula midline. Airway patent. NECK: Trachea midline. No JVD or lymphadenopathy. Supple, nontender, no meningeal signs. CARDIOVASCULAR: Regular rate and rhythm without murmurs, gallops, or rubs. RESPIRATORY: Clear to auscultation. Breath sounds equal bilaterally. No wheezes , rales, or rhonchi. GASTROINTESTINAL: Abdomen soft, slightly tender to palpation mostly in epigastric region and upper quadrants. Bowel sounds are present. moderately distended. MUSCULOSKELETAL: Extremities without clubbing, cyanosis, or edema. No joint tenderness, effusion, or edema noted. No calf tenderness. Negative Homans sign bilaterally. NEUROLOGICAL: Awake and alert. Cranial nerves II through XII intact. Motor and sensory grossly within normal limits. Five out of 5 muscle strength in all muscle groups. Normal Procedures None Medications and IVs Current Medications Medications (Trade) Dose Ordered Sig/Ling Route Start Time Stop Time Status Last Admin (NS Flush) 2 ml UNSCH PRN IV FLUSH 08/03/16 05:45 08/03/16 16:30 (NS Flush) 2 ml BID IV FLUSH 08/03/16 09:00 08/04/16 21:00 (Zofran Inj) 4 mg Q6H PRN IVP 08/03/16 05:45 (Narcan Inj) 0.4 mg UNSCH PRN IV 08/03/16 05:45 (Vitamin B1) 100 mg DAILY PO 08/04/16 09:00 08/05/16 08:22 (Ativan Inj) 1 mg Q2H PRN IV PUSH 08/03/16 06:00 (Librium) 25 mg TID PO 08/03/16 09:00 08/05/16 12:29 Pantoprazole Sodium 40 mg 40 mg Q24H IV PUSH 08/04/16 06:00 08/05/16 05:03 (NS 1000 ml Inj) 1,000 ml @ 125 mls/hr Q8H IV 08/03/16 21:00 08/05/16 12:29 (Morphine Inj) 2 mg Q3H PRN IV PUSH 08/03/16 20:45 (Morphine Inj) 4 mg Q3H PRN IV PUSH 08/03/16 20:45 08/05/16 04:15 (Catapres) 0.1 mg Q6H PRN PO 08/03/16 21:00 Urinary Catheter: No Vascular Central Line Catheter: No A/P Problem List: (1) Acute alcoholic pancreatitis ICD Code: K85.20 Status: Acute (2) Elevated lipase ICD Code: R74.8 Status: Acute (3) Abdominal pain ICD Code: R10.9 Status: Acute (4) Leukocytosis ICD Code: D72.829 Status: Acute Assessment and Plan (1) Acute alcoholic pancreatitis Patient has been admitted to the medical floor. Continue to monitor. GI consulted, recommendations pending Continue to keep the patient nothing by mouth Continue pain control with IV morphine. 08/05 Dc IV fluids. Will DC Iv morphine and Rx percocet for pain. For EGD in am to r/o PUD in light of NSAID use. (2) Elevated lipase ICD Code: R74.8 Status: Acute Plan: Secondary to acute pancreatitis[place] admission [address], trending down to 1348. Lipase trending down - 407 (3) Abdominal pain Plan: Due to acute pancreatitis. Continue pain control with IV morphine. (4) Leukocytosis Plan: Additional distress and pain. WBC now down to 9.7. Continue to monitor CBC. GI prophylaxis: PPI. DVT prophylaxis: SCDs, I will add subcutaneous Lovenox. Discharge Planning Patient still with abdominal pain. Continue to monitor and the medical floor. Problem Qualifiers (1) Acute alcoholic pancreatitis: Qualified Code: K85.20 - Alcohol-induced acute pancreatitis without infection or necrosis (2) Abdominal pain: Qualified Code: R10.9 - Abdominal pain, unspecified location (3) Leukocytosis: Qualified Code: D72.829 - Leukocytosis, unspecified type Jonathan Carmen MD Aug 05, 2016 15:11
[2016-08-05] MEDS ORDERED: oxyCODONE/ACETAMINOPHEN 5 MG/325 MG TAB PO PRN ×2 (15:15)
[2016-08-05] MEDS ORDERED: NICOTINE 14 MG/24 HR PATCH TD ONE (22:45)
[2016-08-05] MEDS: ACETAMINOPHEN 325 MG TAB PO PRN (23:04)
[2016-08-06] VITALS (7 sets, daily range): BP systolic 105–149; BP diastolic 74–89; PULSE 50–56; RESP 16–18; TEMP 96–97.8; O2SAT 94–98
[2016-08-06 05:47] LABS: HDL CHOLESTEROL 45.8 MG/DL (40.0-60.0)
[2016-08-06] MEDS: PANTOPRAZOLE SODIUM 40 MG VIAL IV PUSH SCH (05:49)
[2016-08-06] MEDS: SODIUM CHLORIDE 0.9% FLUSH 10 ML FLUSH IV FLUSH SCH ×2 (09:00→21:00)
[2016-08-06] MEDS: chlordiazePOXIDE 25 MG CAP PO SCH ×3 (10:15→18:03)
[2016-08-06] MEDS: THIAMINE HCL 100 MG TAB PO SCH (10:15)
[2016-08-06] MEDS ORDERED: PROPOFOL 200 MG/20 ML AMP IV ONE (13:08)
[2016-08-06] MEDS ORDERED: DO NOT ADM ANY ANTICOAGULANT DRUGS XX PRN (13:15)
--- NOTE | 2016-08-06 13:19 | GIPROC ---
[facility] [address] [facility]. [facility], [address] EGD PROCEDURE REPORT EXAM DATE: 08/06/2016 PATIENT NAME: Elijah Wiseman MR #: [id number] BIRTHDATE: 1970 ATTENDING: Tomas Hurtado MD ORDER #: [id number] ENGLISH LANGUAGE ARTS TEACHER: Kishor Real and Madan Mensah STATUS: inpatient INDICATIONS: The patient is a 45 yr old male here for an EGD due to epigastric abdominal pain PROCEDURE PERFORMED: EGD w/ biopsy MEDICATIONS: None and Per Anesthesia. TOPICAL ANESTHETIC: CONSENT: The patient understands the risks and benefits of the procedure and understands that these risks include, but are not limited to: sedation, allergic reaction, infection, perforation and/or bleeding. Alternative means of evaluation and treatment include, among others: physical exam, x-rays, and/or surgical intervention. The patient elects to proceed with this endoscopic procedure. medical equipment was checked for proper function. Hand hygiene and appropriate measures for infection prevention was taken. After the risks, benefits and alternatives of the procedure were thoroughly explained, Informed consent was verified, confirmed and timeout was successfully executed by the treatment team. The patient was anesthetized with topical anesthesia and the Pentax [id number] endoscope was introduced through the mouth and advanced to the second portion of the duodenum. Retroflexed views revealed no abnormalities The gastroscope was then slowly withdrawn and removed. STOMACH: There was erythematous moderate gastritis in the gastric antrum. Multiple biopsies were performed. The endoscopy was otherwise normal. ADVERSE EVENTS: There were no complications. IMPRESSIONS: 1. There was erythematous gastritis in the gastric antrum; multiple biopsies were performed 2. Normal endoscopy otherwise 3. Retroflexed views revealed no abnormalities RECOMMENDATIONS: 1. Await biopsy results. Biopsy results will not be ready for 7-10 days. If you don't hear from us in two weeks, call our office for biopsy results. 2. Continue PPI 3. Follow-up: GI clinic PRN PATIENT CONDITION: stable DISPOSITION: Inpatient REPEAT EXAM: Tomas Hurtado MD eSigned: Tomas Hurtado MD 08/06/2016 1:19 PM cc:
[2016-08-06] MEDS ORDERED: PROT40TA PO (16:42)
[2016-08-06] MEDS ORDERED: VITA100T2 PO (16:42)
[2016-08-06] MEDS ORDERED: FOLI1TAB4 PO (16:42)
--- NOTE | 2016-08-06 16:42 | HHI.DCPOC ---
Discharge Care Plan Diagnosis: (1) Acute alcoholic pancreatitis (2) Gastritis Goals to Promote Your Health * To prevent worsening of your condition and complications * To maintain your health at the optimal level Directions to Meet Your Goals Take your medications as prescribed Follow your dietary instruction Follow activity as directed Keep your appointments as scheduled Take your immunizations and boosters as scheduled If your symptoms worsen call your PCP, if no PCP go to Urgent Care Center or Emergency Room Smoking is Dangerous to Your Health. Avoid second hand smoke Call the 24-hour hour crisis hotline for domestic abuse at Jonathan Carmen MD Aug 06, 2016 16:42
--- NOTE | 2016-08-06 16:59 | HHI.PR ---
Subjective Remarks sp EGD denies abdominal pain/nausea or vomiting stable vital signs Objective Vitals Vital Signs Date Time Temp Pulse Resp B/P Pulse Ox O2 Delivery O2 Flow Rate FiO2 08/06/16 16:00 96.0 53 18 128/88 94 08/06/16 14:17 96.4 50 18 149/89 98 08/06/16 13:31 50 20 100/63 100 08/06/16 13:16 97.9 53 20 100/63 99 08/06/16 12:25 97.8 51 16 126/86 96 08/06/16 08:00 96.6 54 16 117/74 95 08/06/16 04:00 96.1 56 17 105/77 97 08/06/16 00:00 97.7 56 17 131/80 97 08/05/16 20:00 65 08/05/16 20:00 96.2 77 17 144/92 98 I/O 08/05/16 08/05/16 08/05/16 08/06/16 08/06/16 08/06/16 07:00 15:00 23:00 07:00 15:00 23:00 Intake Total 729 ml 1677 ml 480 ml 0 ml 240 ml Balance 729 ml 1677 ml 480 ml 0 ml 240 ml Intake Oral 240 ml 240 ml 480 ml 0 ml 240 ml IV Total 489 ml 1437 ml 0 ml 0 ml # Voids 4 6 3 2 2 # Bowel Movements 2 1 Result Diagram: 08/05/16 0406 08/05/16 0406 Imaging Last Impressions Abdomen/Pelvis CT 08/03/16 0139 Signed Impressions: Service Date/Time: Wednesday, August 03, 2016 02:48 - CONCLUSION: 1. Acute pancreatitis. No gallstones. No pseudocyst. The splenic vein remains patent. Christiano Brown Jr., MD Objective Remarks GENERAL: This is a well-nourished, well-developed patient, in mild distress due to pain. No respiratory distress SKIN: No rashes, ecchymoses or lesions. Cool and dry. HEAD: Atraumatic. Normocephalic. No temporal or scalp tenderness. EYES: Pupils equal round and reactive. Extraocular motions intact. No scleral icterus. No injection or drainage. ENT: Nose without bleeding, purulent drainage or septal hematoma. Throat without erythema, tonsillar hypertrophy or exudate. Uvula midline. Airway patent. NECK: Trachea midline. No JVD or lymphadenopathy. Supple, nontender, no meningeal signs. CARDIOVASCULAR: Regular rate and rhythm without murmurs, gallops, or rubs. RESPIRATORY: Clear to auscultation. Breath sounds equal bilaterally. No wheezes , rales, or rhonchi. GASTROINTESTINAL: Abdomen soft, slightly tender to palpation mostly in epigastric region and upper quadrants. Bowel sounds are present. moderately distended. MUSCULOSKELETAL: Extremities without clubbing, cyanosis, or edema. No joint tenderness, effusion, or edema noted. No calf tenderness. Negative Homans sign bilaterally. NEUROLOGICAL: Awake and alert. Cranial nerves II through XII intact. Motor and sensory grossly within normal limits. Five out of 5 muscle strength in all muscle groups. Normal Procedures None Medications and IVs Current Medications Medications (Trade) Dose Ordered Sig/Ling Route Start Time Stop Time Status Last Admin (NS Flush) 2 ml UNSCH PRN IV FLUSH 08/03/16 05:45 08/03/16 16:30 (NS Flush) 2 ml BID IV FLUSH 08/03/16 09:00 08/06/16 09:00 (Zofran Inj) 4 mg Q6H PRN IVP 08/03/16 05:45 (Narcan Inj) 0.4 mg UNSCH PRN IV 08/03/16 05:45 (Vitamin B1) 100 mg DAILY PO 08/04/16 09:00 08/06/16 10:15 (Ativan Inj) 1 mg Q2H PRN IV PUSH 08/03/16 06:00 (Librium) 25 mg TID PO 08/03/16 09:00 08/06/16 14:06 (Protonix Inj) 40 mg Q24H IV PUSH 08/04/16 06:00 08/06/16 05:49 (Catapres) 0.1 mg Q6H PRN PO 08/03/16 21:00 (Percocet 5-325 Mg) 1 tab Q4H PRN PO 08/05/16 15:15 (Percocet 5-325 Mg) 2 tab Q4H PRN PO 08/05/16 15:15 (Tylenol) 650 mg Q6HR PRN PO 08/05/16 22:45 08/05/16 23:04 Miscellaneous Information ALL NURSING DEPARTME... [facility] PRN XX 08/06/16 13:15 08/07/16 13:14 Urinary Catheter: No Vascular Central Line Catheter: No A/P Problem List: (1) Acute alcoholic pancreatitis ICD Code: K85.20 Status: Acute (2) Elevated lipase ICD Code: R74.8 Status: Acute (3) Abdominal pain ICD Code: R10.9 Status: Acute (4) Leukocytosis ICD Code: D72.829 Status: Acute Assessment and Plan (1) Acute alcoholic pancreatitis Patient has been admitted to the medical floor. Continue to monitor. GI consulted, recommendations pending Continue to keep the patient nothing by mouth Continue pain control with IV morphine. 08/05 Dc IV fluids. Will DC Iv morphine and Rx percocet for pain. 08/06 sp EGD which found gastritis. Patient is still on clear liquid diet - advance to soft tonight. DC in am if tolerating diet. (2) Elevated lipase Plan: Secondary to acute pancreatitis[place] admission [address], trending down to 1348. Lipase now within normal range today. (3) Abdominal pain Plan: Due to acute pancreatitis. Continue pain control with Percocet. resolved. (4) Leukocytosis Plan: Due to stress and pain. WBC normal. GI prophylaxis: PPI. DVT prophylaxis: SCDs, I will add subcutaneous Lovenox. Discharge Planning DC in am. chartered wealth manager to help patient obtain patient's assistance. Problem Qualifiers (1) Acute alcoholic pancreatitis: Qualified Code: K85.20 - Alcohol-induced acute pancreatitis without infection or necrosis (2) Abdominal pain: Qualified Code: R10.9 - Abdominal pain, unspecified location (3) Leukocytosis: Qualified Code: D72.829 - Leukocytosis, unspecified type Jonathan Carmen MD Aug 06, 2016 16:59
[2016-08-07] VITALS: BP 124/80; PULSE 65; RESP 18; TEMP 99.1; O2SAT 98
[2016-08-07 04:00] VITALS: BP 100/58; PULSE 53; RESP 20; TEMP 98.2; O2SAT 96
[2016-08-07] MEDS: PANTOPRAZOLE SODIUM 40 MG VIAL IV PUSH SCH (04:09)
[2016-08-07 05:10] LABS: HEMATOCRIT 39.4 % (39.0-51.0); MEAN CORPUSCULAR HEMOGLOBIN 31.3 PG (27.0-34.0); MEAN CORPUSCULAR HGB CONC 33.3 % (32.0-36.0); PLATELET COUNT 309 TH/MM3 (150-450); RED CELL DISTRIBUTION WIDTH 17.4 % (11.6-17.2); REVIEW FLAG FINAL; WHITE BLOOD COUNT 8.9 TH/MM3 (4.0-11.0)
[2016-08-07 05:42] LABS: ALKALINE PHOSPHATASE 56 U/L (45-117); ALT (GPT) 13 U/L (12-78); ANION GAP 8 MEQ/L (5-15); AST (GOT) 11 U/L (15-37); BICARBONATE 26.2 MEQ/L (21.0-32.0); BLOOD UREA NITROGEN 9 MG/DL (7-18); CHLORIDE 106 MEQ/L (98-107); GLOMERULAR FILTRATION RATE 107 ML/MIN (>89); POTASSIUM 3.6 MEQ/L (3.5-5.1); SODIUM (NA) 140 MEQ/L (136-145); TOTAL BILIRUBIN ADULT 0.2 MG/DL (0.2-1.0)
[2016-08-07 08:00] VITALS: BP 109/71; PULSE 56; RESP 18; TEMP 96.5; O2SAT 95
[2016-08-07 08:10] VITALS: PULSE 59
[2016-08-07] MEDS: chlordiazePOXIDE 25 MG CAP PO SCH (08:18)
[2016-08-07] MEDS: THIAMINE HCL 100 MG TAB PO SCH (08:18)
[2016-08-07] MEDS: SODIUM CHLORIDE 0.9% FLUSH 10 ML FLUSH IV FLUSH SCH (08:19)
[2016-08-07] MEDS: ACETAMINOPHEN 325 MG TAB PO PRN (09:02)
[2016-08-07 10:02] VITALS: RESP 18
--- NOTE | 2016-08-07 10:41 | HHI.DS ---
Discharge Summary Admission Date Aug 03, 2016 at 06:00 Discharge Date: Aug 07, 2016 Admitting Diagnosis acute pancreatitis (1) Acute alcoholic pancreatitis ICD Code: K85.20 Diagnosis: Principal (2) Elevated lipase ICD Code: R74.8 Diagnosis: Principal (3) Abdominal pain ICD Code: R10.9 Diagnosis: Principal (4) Leukocytosis ICD Code: D72.829 Diagnosis: Principal Procedures None Brief History - From Admission This is a 45-year-old male without significant past medical history other than alcohol abuse and smoking addiction who presents to [facility] complaining of one-day history of severe abdominal pain. The patient states that he started having yesterday around 7:20 PM abdominal pain localized in the epigastric region radiating to both right upper quadrant and left upper quadrant and to the back in a hemipelvis fashion associated with nausea and vomiting posteriorly as well as diarrhea. The patient denies any fevers or chills, denies any tremors, denies headache, denies palpitations. Complains of abdominal distention and decreased appetite. Patient states there are no aggravating or alleviating factors other than medications being administered here in the hospital. Nausea still present, however vomiting has resolved. CBC/BMP: 08/07/16 0433 08/07/16 0433 Significant Findings Laboratory Tests Test 08/05/16 08/07/16 04:06 04:33 Red Blood Count 4.09 MIL/MM3 4.20 MIL/MM3 (4.50-5.90) (4.50-5.90) Hematocrit 37.8 % (39.0-51.0) Red Cell Distribution Width 17.3 % 17.4 % (11.6-17.2) (11.6-17.2) Lipase 407 U/L 465 U/L (73-393) (73-393) Aspartate Amino Transf 11 U/L (15-37) (AST/SGOT) Albumin 3.1 GM/DL (3.4-5.0) Imaging Last Impressions Abdomen/Pelvis CT 08/03/16 0139 Signed Impressions: Service Date/Time: Wednesday, August 03, 2016 02:48 - CONCLUSION: 1. Acute pancreatitis. No gallstones. No pseudocyst. The splenic vein remains patent. Christiano Brown Jr., MD PE at Discharge GENERAL: This is a well-nourished, well-developed patient, in mild distress due to pain. No respiratory distress SKIN: No rashes, ecchymoses or lesions. Cool and dry. HEAD: Atraumatic. Normocephalic. No temporal or scalp tenderness. EYES: Pupils equal round and reactive. Extraocular motions intact. No scleral icterus. No injection or drainage. ENT: Nose without bleeding, purulent drainage or septal hematoma. Throat without erythema, tonsillar hypertrophy or exudate. Uvula midline. Airway patent. NECK: Trachea midline. No JVD or lymphadenopathy. Supple, nontender, no meningeal signs. CARDIOVASCULAR: Regular rate and rhythm without murmurs, gallops, or rubs. RESPIRATORY: Clear to auscultation. Breath sounds equal bilaterally. No wheezes , rales, or rhonchi. GASTROINTESTINAL: Abdomen soft, slightly tender to palpation mostly in epigastric region and upper quadrants. Bowel sounds are present. moderately distended. MUSCULOSKELETAL: Extremities without clubbing, cyanosis, or edema. No joint tenderness, effusion, or edema noted. No calf tenderness. Negative Homans sign bilaterally. NEUROLOGICAL: Awake and alert. Cranial nerves II through XII intact. Motor and sensory grossly within normal limits. Five out of 5 muscle strength in all muscle groups. Normal Hospital Course (1) Acute alcoholic pancreatitis Patient was admitted to the medical floor, placed nothing by mouth and on IV fluids from normal saline. GI was consulted and patient was placed on clear liquid diet, lipase was trended during hospital stay. Patient's abdominal pain and lipase subsequently trended down and patient improved clinically. EGD was recommended by GI to rule out peptic ulcer disease given the continued use of NSAIDs by the patient. Pain control was provided with IV morphine and then oral Percocet. IV fluids were discontinued eventually after patient able to tolerate by mouth diet. EGD was done on 08/06/16 Gastritis. The Patient Tolerated Regular Diet Prior to Discharge. The Patient Will Be Discharged on Protonix Daily and Patient's Assistance Will Be Arranged for the Patient to Follow-Up with the Outpatient Clinic. (2) Elevated lipase Secondary to acute pancreatitis. [place] admission [address], trending down to 1348. Lipase normal on date of discharge. (3) Abdominal pain Control was provided with IV morphine and Percocet. (4) Leukocytosis WBC was monitored. Leukocytosis thought to be elevated distress and pain. WBC trended down and was normal on the date of discharge. GI prophylaxis: PPI. DVT prophylaxis: SCDs, I will add subcutaneous Lovenox. Pt Condition on Discharge: Stable Discharge Disposition: Discharge Home Discharge Time: <= 30 minutes Discharge Instructions DIET: Follow Instructions for: As Tolerated, No Restrictions Activities you can perform: Regular-No Restrictions Follow up Referrals: Clinic with [facility] New Medications: Folic Acid (Folate) 1 Mg Tab 1 MG PO DAILY Nutritional Supplement #30 Ref 0 TAB Pantoprazole (Protonix) 40 Mg Tab 40 MG PO DAILY gastritis #30 Ref 0 TAB Thiamine (Vitamin B-1) 100 Mg Tab 100 MG PO DAILY etoh #30 TAB Jonathan Carmen MD Aug 07, 2016 10:41
== END 2016-08-07 13:18 | disposition home or self-care (01) | DRG 440 ==
LOC: NEPE 00:56 → NEDA 06:00 → NEDH 11:11 → NEDA 12:34 → NEDH 12:35 → N07B 16:02
PROVIDERS: ADMIT Hospitalist; ATTEND Hospitalist
PROC: 0DB68ZX Excision of Stomach, Via Natural or Artificial Opening Endoscopic, Diagnostic (ICD-10-PCS; principal; 2016-08-06 12:35)
DX: K85.20 Alcohol induced acute pancreatitis without necrosis or infection (principal); K29.70 Gastritis, unspecified, without bleeding; K27.9 Peptic ulcer, site unspecified, unspecified as acute or chronic, without hemorrhage or perforation; R74.8 Abnormal levels of other serum enzymes; R73.03 Prediabetes; Z79.1 Long term (current) use of non-steroidal anti-inflammatories (NSAID); M25.519 Pain in unspecified shoulder; F17.210 Nicotine dependence, cigarettes, uncomplicated
CPT/HCPCS: 74177; 80048; 80053; 80061; 81001; 83690; 85025; 85027; 85610; 85730; 88305; 88312; 96361; 96374; 96375; C9113; J2270; J2405; J7030; Q9967